=== PATIENT | female | born 1960 | race Two or more races ===

== ENCOUNTER 2025-04-13 11:29 | Emergency (ER) | payer OTHER ==
[~2025-04-13] VITALS: Ht 152.4 cm; Wt 66.7 kg
== END 2025-04-13 12:18 | disposition home or self-care (01) ==
LOC: ER 11:46
DX: H61.23 Impacted cerumen, bilateral (principal); Z88.2 Allergy status to sulfonamides; Z88.6 Allergy status to analgesic agent